=== PATIENT | female | born 1950 | race Caucasian/White ===

== ENCOUNTER 2016-12-14 05:39 | Day surgery (SDC) | payer OTHER ==
[~2016-12-14] VITALS: Ht 157.5 cm; Wt 88.2 kg
[2016-12-14] MEDS ORDERED: SODIUM CHLORIDE 0.9% 1,000 ML IV ONE ×2 (06:06→07:15)
[2016-12-14] MEDS ORDERED: LEVO25TA9 PO (07:22)
[2016-12-14] MEDS ORDERED: MOME13HF2 IH (07:22)
[2016-12-14] MEDS ORDERED: METF500T4 PO (07:22)
[2016-12-14] MEDS ORDERED: LOSA50TA37 PO (07:22)
[2016-12-14] MEDS ORDERED: ASPI81 PO (07:22)
[2016-12-14 07:45] LABS: GLUCOSE,POINT OF CARE 86 MG/DL (70-110)
[2016-12-14] MEDS ORDERED: FentaNYL CITRATE-PF 100 MCG/2 ML VIAL ONE (07:49)
[2016-12-14] MEDS ORDERED: MIDAZOLAM HCL 2 MG/2 ML VIAL ONE (07:49)
[2016-12-14] MEDS ORDERED: MethylPREDNISolone SOD SUCC 125 MG/2 ML VIAL IVP ONE (08:30)
[2016-12-14] MEDS ORDERED: MethylPREDNISolone SOD SUCC 125 MG/2 ML VIAL ONE (09:05)
[2016-12-14] MEDS ORDERED: OXYGEN THERAPY IH SCH (20:00)
== END 2016-12-14 10:05 | disposition home or self-care (01) ==
LOC: SURGERY 05:39
PROVIDERS: ATTEND Internal Medicine Critical Care Medicine
DX: J38.4 Edema of larynx (principal); B37.0 Candidal stomatitis; J45.909 Unspecified asthma, uncomplicated; E11.9 Type 2 diabetes mellitus without complications; M54.9 Dorsalgia, unspecified; M54.30 Sciatica, unspecified side; Z88.8 Allergy status to other drugs, medicaments and biological substances; Z98.890 Other specified postprocedural states
CPT/HCPCS: 31623; 31624; 71010; 82962; 87015; 87070; 87101; 87205; 87220; 93005; J2250; J2930; J3010; J7030; 88108; 88312